=== PATIENT | female | born 1980 | race Caucasian/White ===

== ENCOUNTER 2020-07-20 16:48 | Outpatient (REF) | payer MEDICAID, SELFPAY ==
--- NOTE | 2020-07-20 15:04 | UVULA_PTH ---
PATIENT: DON HILL LOC: [facility] U#:[id number] AGE/SX: 40/F ROOM: RE07/20/[address]: Wagner Liao MD : 1980 BED: DIS: 07/20/2020 SPEC #: [id number] RECD: 07/21/20 12:44 STATUS: KIRK REKhadijah #: [id number] ALISON: 07/20/20 15:[address]: Wagner Liao DEPT: Surgical Specimen RECD BY: Doreen Kidd ENTERED: 07/21/20 12:44 SP TYPE: UVULA OTHR DR: Alexandra Arzola Tissues: 1 - UVULA Procedures: GROSS AND MICRO LEVEL 3 Comments: [id number]
== END 2020-07-20 16:49 | disposition home or self-care (01) ==
LOC: LBN 16:48
PROVIDERS: PCP Internal Medicine; Visit Provider Otolaryngology
DX: F17.210 Nicotine dependence, cigarettes, uncomplicated (principal); D10.39 Benign neoplasm of other parts of mouth
CPT/HCPCS: 88304